=== PATIENT | male | born 1990 | race Caucasian/White ===

== ENCOUNTER 2016-10-14 00:51 | Emergency (ER) | payer OTHER ==
[~2016-10-14] VITALS: Ht 175.3 cm; Wt 117.9 kg
[~2016-10-14 00:51] MED LIST: AMOXICILLIN500 MG PO; MOTRIN IB200 MG PO; NAPROXEN500 MG PO; NORCO 5-325 TA1 EACH PO; PENICILLIN V P500 MG PO; TAMIFLU75 MG PO; TYLENOL EXTRA500 MG PO
[2016-10-14] MEDS ORDERED: LEXAPRO20 MG PO (01:03)
[2016-10-14] MEDS ORDERED: LIPITOR40 MG PO (01:03)
== END 2016-10-14 01:39 | disposition home or self-care (01) ==
LOC: ED 00:51
PROC: 2W3JX1Z Immobilization of Right Finger using Splint (ICD-10-PCS; principal; 2016-10-14)
DX: M77.9 Enthesopathy, unspecified (principal); J45.909 Unspecified asthma, uncomplicated; Z79.899 Other long term (current) drug therapy
CPT/HCPCS: 29130; 99282

== ENCOUNTER 2017-03-22 17:46 | Emergency (ER) | payer OTHER ==
[~2017-03-22] VITALS: Ht 175.3 cm; Wt 117.9 kg
[~2017-03-22 17:46] MED LIST changes: +LEXAPRO20 MG PO; +LIPITOR40 MG PO
[2017-03-22] MEDS ORDERED: KETOROLAC TROME10 MG PO (18:41)
== END 2017-03-22 18:55 | disposition home or self-care (01) ==
LOC: ED 17:46
DX: N50.811 Right testicular pain (principal); Z79.899 Other long term (current) drug therapy
CPT/HCPCS: 76870; 81001; 99284

== ENCOUNTER 2017-06-05 23:56 | Emergency (ER) | payer BC, OTHER ==
[~2017-06-05] VITALS: Ht 175.3 cm; Wt 122.5 kg
[~2017-06-05 23:56] MED LIST changes: +KETOROLAC TROME10 MG PO
== END 2017-06-06 02:52 | disposition home or self-care (01) ==
LOC: ED 23:56
DX: K29.00 Acute gastritis without bleeding (principal); F41.9 Anxiety disorder, unspecified; E78.5 Hyperlipidemia, unspecified; Z79.899 Other long term (current) drug therapy
CPT/HCPCS: 80053; 81001; 83690; 85025; 99283

== ENCOUNTER 2019-02-24 16:29 | Emergency (ER) | payer OTHER ==
[~2019-02-24] VITALS: Ht 175.3 cm; Wt 122.5 kg
[~2019-02-24 16:29] MED LIST changes: +CETIRIZINE HCL5 MG PO; +OMEPRAZOLE20 MG PO; +SERTRALINE HCL100 MG PO
[2019-02-24] MEDS ORDERED: TYLENOL325 MG PO (16:56)
[2019-02-24] MEDS ORDERED: ADVIL200 MG PO (16:56)
[2019-02-24] MEDS ORDERED: TUSSIN CF MAX118 M1 PO (16:56)
[2019-02-24] MEDS ORDERED: ONDANSETRON ODT8 MG PO (17:19)
== END 2019-02-24 17:33 | disposition home or self-care (01) ==
LOC: ED 16:29
DX: J10.1 Influenza due to other identified influenza virus with other respiratory manifestations (principal); F41.9 Anxiety disorder, unspecified; E78.5 Hyperlipidemia, unspecified; J45.909 Unspecified asthma, uncomplicated; Z79.899 Other long term (current) drug therapy
CPT/HCPCS: 87502; 99283; A9270

== ENCOUNTER 2019-03-01 21:42 | Emergency (ER) | payer OTHER ==
[~2019-03-01] VITALS: Ht 175.3 cm; Wt 122.5 kg
[~2019-03-01 21:42] MED LIST changes: +ADVIL200 MG PO; +ONDANSETRON ODT8 MG PO; +TUSSIN CF MAX118 M1 PO; +TYLENOL325 MG PO
--- OUTSIDE RECORDS SUMMARY | 2019-03-01 21:46 | XMS ---
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 Vasile has no Care Guidelines for this patient. Manuela VISIT COUNT (12 MO.) [address] [facility] TOTAL 2 NOTE: Visits indicate total known visits. 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
== END 2019-03-01 23:38 | disposition short-term general hospital (02) ==
LOC: ED 21:42
DX: J11.1 Influenza due to unidentified influenza virus with other respiratory manifestations (principal); J45.909 Unspecified asthma, uncomplicated; F41.9 Anxiety disorder, unspecified; E78.5 Hyperlipidemia, unspecified; Z79.899 Other long term (current) drug therapy
CPT/HCPCS: 99284

== ENCOUNTER 2020-03-27 11:30 | Emergency (ER) | payer OTHER ==
[~2020-03-27] VITALS: Ht 175.3 cm; Wt 122.5 kg
--- OUTSIDE RECORDS SUMMARY | 2020-03-27 11:32 | XMS ---
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 E.D. VISIT COUNT (12 MO.) 1 [facility] TOTAL 1 NOTE: Visits indicate total known visits. ED/UCC VISIT TRACKING (12 MO.) 03/27/2020 11:[address] [facility] TYPE: Emergency COMPLAINT: - COLD/FLU SYMPTOMS INPATIENT VISIT TRACKING (12 MO.) No inpatient visits to display in this time frame [email or web address]
[2020-03-27] MEDS ORDERED: FLUOXETINE HCL20 M1 PO (14:50)
[2020-03-27] MEDS ORDERED: FLUOXETINE HCL40 MG PO (14:50)
[2020-03-27] MEDS ORDERED: VENTOLIN HFA18 GM INH (14:51)
[2020-03-27] MEDS ORDERED: DISKETS40 MG PO (14:52)
[2020-03-27] MEDS ORDERED: ZOFRAN4 MG PO (16:18)
== END 2020-03-27 16:47 | disposition home or self-care (01) ==
LOC: ED 11:30
DX: U07.1 COVID-19 (principal); J45.909 Unspecified asthma, uncomplicated; E78.5 Hyperlipidemia, unspecified; Z79.899 Other long term (current) drug therapy
CPT/HCPCS: 71045; 99284-25

== ENCOUNTER 2020-12-16 20:27 | Emergency (ER) | payer OTHER ==
[~2020-12-16] VITALS: Ht 175.3 cm; Wt 128.0 kg
[~2020-12-16 20:27] MED LIST changes: +DISKETS40 MG PO; +FLUOXETINE HCL20 M1 PO; +FLUOXETINE HCL40 MG PO; +VENTOLIN HFA18 GM INH; +ZOFRAN4 MG PO
== END 2020-12-17 00:33 | disposition home or self-care (01) ==
LOC: ED 20:27
DX: S93.402A Sprain of unspecified ligament of left ankle, initial encounter (principal); W01.0XXA Fall on same level from slipping, tripping and stumbling without subsequent striking against object, initial encounter; J45.909 Unspecified asthma, uncomplicated; E78.5 Hyperlipidemia, unspecified; Z79.899 Other long term (current) drug therapy
CPT/HCPCS: 73610; 99283-25